=== PATIENT | female | born 1990 ===

== ENCOUNTER → 2017-10-04 | Outpatient (REF) | payer BC ==
[~2017-10-04] MED LIST: ALB17R INH; CIP500 PO; LOR1 PO; MIN100 PO; PRE20 PO
[2017-10-04 12:01] LABS: PLATELET COUNT, AUTOMATED 314 K/uL (150-450)
== END ==
PROVIDERS: ATTEND Nurse Practitioner Family
DX: M25.50 Pain in unspecified joint (principal)
CPT/HCPCS: 82040; 82247; 82310; 82374; 82435; 82565; 82947; 84075; 84132; 84155; 84295; 84450; 84460; 84520; 85025